=== PATIENT | female | born 1945 | race Caucasian/White ===

== ENCOUNTER 2017-09-07 07:10 | Day surgery (SDC) | payer MEDICARE ==
[~2017-09-07] VITALS: Ht 170.2 cm; Wt 102.3 kg
[2017-09-07] VITALS (10 sets, daily range): BP systolic 92–129; BP diastolic 62–91; PULSE 65–90; RESP 17–20; TEMP 97.7–98; O2SAT 94–99
[2017-09-07] MEDS ORDERED: IODIXANOL 320 MG/ML 50 ML VIAL (for RAD SPEC) IVCONTRAST ONE (07:11)
[2017-09-07] MEDS ORDERED: ASPI-516 CHEW (07:43)
[2017-09-07] MEDS ORDERED: DOXY100C PO (07:43)
[2017-09-07] MEDS ORDERED: FURO40TA PO (07:43)
[2017-09-07] MEDS ORDERED: VITA1000 PO (07:43)
[2017-09-07] MEDS ORDERED: METR0.752 TOPICAL (07:43)
[2017-09-07] MEDS ORDERED: K-TA10TA PO (07:43)
[2017-09-07] MEDS ORDERED: EXEN1INJ SQ (07:43)
[2017-09-07] MEDS ORDERED: ROSU1TAB6 PO (07:43)
[2017-09-07 08:00] LABS: AUTOMATED NEUTROPHIL # 5.5 TH/MM3 (1.8-7.7); BASOPHIL % 0.2 % (0.0-2.0); EOSINOPHIL # 0.1 TH/MM3 (0-0.4); EOSINOPHIL % 1.6 % (0.0-4.0); HEMATOCRIT 38.3 % (35.0-46.0); HEMOGLOBIN 12.7 GM/DL (11.6-15.3); LYMPH % 19.2 % (9.0-44.0); LYMPHOCYTE # 1.5 TH/MM3 (1.0-4.8); MEAN CELL VOLUME 82.2 FL (80.0-100.0); MEAN CORPUSCULAR HEMOGLOBIN 27.2 PG (27.0-34.0); MEAN CORPUSCULAR HGB CONC 33.1 % (32.0-36.0); MEAN PLATELET VOLUME 8.5 FL (7.0-11.0); MONOCYTE # 0.6 TH/MM3 (0-0.9); PLATELET COUNT 242 TH/MM3 (150-450); RED BLOOD COUNT 4.66 MIL/MM3 (4.00-5.30); RED CELL DISTRIBUTION WIDTH 16.3 % (11.6-17.2); WHITE BLOOD COUNT 7.7 TH/MM3 (4.0-11.0)
[2017-09-07] MEDS ORDERED: SODIUM CHLOR 0.9% 1000 ML INJ 1,000 ML IV SCH (08:00)
[2017-09-07 08:07] LABS: PROTHROMBIN TIME - PATIENT 10.3 SEC (9.8-11.6)
[2017-09-07 08:16] LABS: BICARBONATE 24.9 MEQ/L (21.0-32.0); CALCIUM 9.7 MG/DL (8.5-10.1); CREATININE 1.13 MG/DL (0.50-1.00)
[2017-09-07] MEDS ORDERED: MIDAZOLAM HCL 5 MG/5 ML VIAL ONE (08:43)
[2017-09-07] MEDS ORDERED: fentaNYL CITRATE 250 MCG/5 ML AMP ONE (08:43)
[2017-09-07] MEDS ORDERED: HYDROmorphone HCL PF 2 MG/ML VIAL ONE ×2 (09:44→13:35)
--- NOTE | 2017-09-07 09:55 | PD.RAD ---
Post Procedure Progress Note Pre Procedure Diagnosis: (1) Amaurosis fugax Post Procedure Diagnosis: (1) Amaurosis fugax Procedure Date: Sep 07, 2017 Supervising Radiologist: Kemal James JR Proceduralist/Assist: Moi Suarez, RT(R), Sarika Valero RT(R) Anesthesia: Conscious Sedation Plan of Activity Patient to Unit: ROPU Patient Condition: Good See PACS Report for procedural detail/treatment Vascular-Arterial Procedure Procedure 1 Procedure Site: Bilateral Carotid Procedure(s): Angiogram Access Access Site(s): Right Femoral Artery Findings: Chronically occluded left carotid. Right ICA with ulcerated plaque. Approx 20-30 % stenosis. Left vert occluded. Right patent. Plan F/U with Dr Jackson. Jr. Jacob,Kemal Carrera MD Sep 07, 2017 09:55
--- NOTE | 2017-09-07 14:04 | RADRPT ---
EXAM DATE/TIME: 09/07/2017 08:23 [facility] COMPARISON: No previous studies available for comparison. INDICATIONS : Patient presents with intermittent vision loss in need of cerebral angiogram for evaluation. Dr. Monge on requests diagnostic carotid angiogram to better evaluate right carotid stenosis. MEDICAL HISTORY : Diabetes COPD Rosacea CAD Depression Hep C SURGICAL HISTORY : Cholecystectomy Appendectomy Hysterectomy Laminectomy ENCOUNTER: Initial ACUITY: 3 weeks PAIN SCORE: 0/10 LOCATION: N/A FLUORO TIME: 4.7 minutes IMAGE SERIES: 8 ACCESS SITE: Right Femoral artery SEDATION TIME: 45 minutes CONTRAST: 100 cc Visipaque (iodixanol) MEDICATION(S): 1.) 2 mg midazolam (Versed) IV 2.) 150 mcg fentanyl (Sublimaze) IV 3.) 1 mg hydromorphone (Dilaudid) IV PROCEDURE : 1. Ultrasound-guided puncture of the right common femoral artery. 2. Conscious sedation with continuous EKG and Oximetry monitoring. 3. Angiography of the aortic arch 4. Angiography of the right common carotid artery The risks, benefits and alternatives to the procedure were explained and verbal and written consent w as obtained. The site was prepped in sterile fashion. Full sterile technique was used, including ca p, mask, sterile gloves and gown and a large sterile sheet. Hand hygiene and 2% chlorhexidine and/or betadine/alcohol prep was utilized per protocol for cutaneous antisepsis. Sterile gel and sterile p robe cover were utilized for ultrasound guidance. The skin and subcutaneous tissues were infiltrated with local anesthetic solution. With ultrasound and fluoroscopic guidance the right common femoral artery was punctured and a vascula r sheath was placed. A pigtail catheter was passed into the ascending aorta and arch aortogram performed. Selection of the right common carotid artery was then performed utilizing a Berenstein catheter and selected carotid angiography performed from multiple angles. These diagnostic images shows significant calcified ather osclerotic plaque involving the arch and origin of the arch vessels. The left common carotid artery i s occluded beginning within its distal aspect and extending through the ICA. The remaining portion of the common carotid artery that is patent it is heavily diseased. The brachycephalic artery is patent . Left subclavian artery shows concentric atherosclerotic plaque centimeter the origin of the left ac jyoti artery generating a 30% stenosis. The left vertebral artery is occluded. Right vertebral artery i s patent. Selective images of the right ICA show the common carotid artery to be patent. A calcified atherosclerotic plaque generate a highly irregular luminal contour to the ICA origin and proximal 1.5 cm of the ICA. There are 2 ulcerations involving the plaque. Utilizing NASCET criteria there is a 50 % stenosis of the ICA origin. This is slightly higher than what was predicted off the CTA. The more c ephalad portion of the extracranial ICA is patent. The ECA is patent. The puncture site was closed with manual pressure and hemostasis was obtained. The patient tolerated the procedure well and there were no complications. Conscious sedation was performed with the prescribed dosages and duration as above in the presence of an independent trained radiology nurse to assist in the monitoring of the patient. EKG and oximetry remained stable throughout the procedure. CONCLUSION: 1. 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 This is unchanged from prior studies. 2. 50% stenosis of the proximal right ICA secondary to ulcerated atherosclerotic plaque. 3. Occluded left vertebral artery. The right vertebral artery is patent. Kemal James Jr., MD on September 07, 2017 at 13:54 Board Certified Radiologist. This report was verified electronically.
== END 2017-09-07 15:33 | disposition home or self-care (01) ==
LOC: HROP 07:10 → HRIP 07:15 → HROP 15:33
PROVIDERS: ATTEND Surgery Vascular Surgery
DX: G45.3 Amaurosis fugax (principal); I25.10 Atherosclerotic heart disease of native coronary artery without angina pectoris; J44.9 Chronic obstructive pulmonary disease, unspecified; E11.9 Type 2 diabetes mellitus without complications
CPT/HCPCS: 36223; 80048; 85025; 85610; 85730; 99152; 99153; C1769; C1887; C1894; J1170; J2250; J3010; J7030; Q9967

== ENCOUNTER 2017-09-15 09:40 | Day surgery (SDC) | payer MEDICARE ==
[~2017-09-15 09:40] MED LIST: ASPI-516 CHEW; DOXY100C PO; EXEN1INJ SQ; FURO40TA PO; K-TA10TA PO; METR0.752 TOPICAL; ROSU1TAB6 PO; VITA1000 PO
== END 2017-09-15 10:23 | disposition home or self-care (01) ==
LOC: HROP 09:40 → HRIP 09:40 → HROP 10:23
PROVIDERS: ATTEND Radiology Body Imaging
DX: G45.3 Amaurosis fugax (principal)

== ENCOUNTER → 2017-11-12 | Outpatient (CLI) | payer MEDICARE | LOC: CLAB 07:36 | PROVIDERS: ATTEND Specialist | DX: B18.2 Chronic viral hepatitis C (principal); I10 Essential (primary) hypertension; E55.9 Vitamin D deficiency, unspecified; J44.9 Chronic obstructive pulmonary disease, unspecified; E13.42 Other specified diabetes mellitus with diabetic polyneuropathy | CPT/HCPCS: 36415; 82140 ==